=== PATIENT | female | born 1965 | race American Indian/Alaskan Native ===

== ENCOUNTER 2018-06-20 21:33 | Emergency (ER) | payer MEDICAID ==
[2018-06-20 23:00] LABS: Basophils % (Auto) 0.2 % (0.0-1.8); Eosinophils # (Auto) 0.2 K/mm3 (0.0-0.4); Eosinophils % (Auto) 2.2 % (0.0-4.3); Hematocrit 32.9 % (30.3-42.9); Hemoglobin 11.1 gm/dl (10.1-14.3); Lymphocytes # (Auto) 3.4 K/mm3 (1.2-5.4); Mean Corpuscular HGB Conc 34 % (30-34); Mean Corpuscular Hemoglobin 30 pg (28-32); Mean Corpuscular Volume 90 fl (79-97); Monocytes # (Auto) 0.6 K/mm3 (0.0-0.8); Monocytes % (Auto) 7.7 % (0.0-7.3); Platelet Count 251 K/mm3 (140-440); Red Blood Count 3.67 M/mm3 (3.65-5.03); Red Cell Distribution Width 14.9 % (13.2-15.2)
[2018-06-20 23:13] LABS: BUN/Creatinine Ratio 21; Blood Urea Nitrogen 19 mg/dL (7-17); Hemolysis Index 0
[2018-06-20 23:37] LABS: Bilirubin,Urine NEG (Negative); Blood,Urine MOD (Negative); Color,Urine Yellow (Yellow); Hyaline Casts,Urine 1 /LPF; Protein,Urine <15 mg/dL mg/dL (Negative); Urobilinogen,Urine < 2.0 mg/dL (<2.0)
[2018-06-20 23:43] LABS: Amphetamine Screen,Urine PRESUMPTIVE NEGATIVE; Benzodiazepines Screen,Urine PRESUMPTIVE NEGATIVE; Cannabinoid Screen,Urine PRESUMPTIVE NEGATIVE; Cocaine Screen,Urine PRESUMPTIVE NEGATIVE; Methadone Screen,Urine PRESUMPTIVE NEGATIVE; Opiate Screen,Urine PRESUMPTIVE NEGATIVE
[2018-06-21 06:46] VITALS: BP 157/95
--- NOTE | 2018-06-21 08:49 | Emergency Department Report ---
ED Psych HPI - General Chief Complaint: Psych Stated Complaint: ANXIETY Time Seen by Provider: 06/21/18 08:36 Source: patient Mode of arrival: Ambulatory - History of Present Illness Initial Comments: Patient is 53 years old female with history of paranoid schizophrenia. Patient presented to the ER stating that she is hearing voices and seeing them also and these voices are bothering her. Patient denied any thoughts of suicidal or homicidal ideation. MD Complaint: altered mental status - Related Data Home Medications Medication Instructions Recorded Confirmed Last Taken Artane 5 mg PO BID 06/20/18 06/20/18 Unknown Depakote 500 mg PO BID 06/20/18 06/20/18 Unknown HCTZ 25 mg PO DAILY 06/20/18 06/20/18 Unknown Lisinopril 20 mg PO DAILY 06/20/18 06/20/18 Unknown Prilosec 40 mg PO DAILY 06/20/18 06/20/18 Unknown traZODone 100 mg PO HS 06/20/18 06/20/18 Unknown Allergies Allergy/AdvReac Type Severity Reaction Status Date / Time acetaminophen [From Tylenol] Allergy Rash Verified 06/20/18 22:18 chlorpromazine Allergy Hives Verified 06/20/18 22:19 [From Thorazine] oxycodone Allergy Angioedema Verified 06/20/18 22:20 ED Review of Systems ROS: Stated complaint: ANXIETY Other details as noted in HPI Comment: All other systems reviewed and negative Constitutional: denies: chills, fever Respiratory: denies: cough, orthopnea, shortness of breath, SOB with exertion, SOB at rest, wheezing Cardiovascular: denies: chest pain, palpitations, dyspnea on exertion Gastrointestinal: denies: abdominal pain, nausea, vomiting, diarrhea, constipation, hematemesis, hematochezia Musculoskeletal: denies: back pain Neurological: denies: headache, weakness, numbness, paresthesias, confusion, abnormal gait ED Past Medical Hx - Past Medical History Hx Hypertension: Yes Hx GERD: Yes Hx Psychiatric Treatment: Yes (BIPOLAR, ANXIETY) - Surgical History Past Surgical History?: Yes Additional Surgical History: RIGHT FOOT, , hysterectomy - Social History Smoking Status: Current Every Day Smoker Substance Use Type: None - Medications Home Medications: Home Medications Medication Instructions Recorded Confirmed Last Taken Type Artane 5 mg PO BID 06/20/18 06/20/18 Unknown History Depakote 500 mg PO BID 06/20/18 06/20/18 Unknown History HCTZ 25 mg PO DAILY 06/20/18 06/20/18 Unknown History Lisinopril 20 mg PO DAILY 06/20/18 06/20/18 Unknown History Prilosec 40 mg PO DAILY 06/20/18 06/20/18 Unknown History traZODone 100 mg PO HS 06/20/18 06/20/18 Unknown History ED Physical Exam - General Limitations: No Limitations General appearance: alert, in no apparent distress - Head Head exam: Present: atraumatic, normocephalic, normal inspection - Eye Eye exam: Present: normal appearance, PERRL - ENT ENT exam: Present: normal exam, normal orophraynx, mucous membranes moist - Neck Neck exam: Present: normal inspection, full ROM. Absent: tenderness, meningismus, lymphadenopathy - Respiratory Respiratory exam: Present: normal lung sounds bilaterally. Absent: respiratory distress, wheezes, chest wall tenderness - Cardiovascular Cardiovascular Exam: Present: regular rate, normal rhythm, normal heart sounds - GI/Abdominal GI/Abdominal exam: Present: soft, normal bowel sounds. Absent: distended, tenderness, guarding, rebound, rigid, organomegaly, mass, bruit, pulsatile mass , hernia - Extremities Exam Extremities exam: Present: normal inspection, full ROM, normal capillary refill - Back Exam Back exam: Present: normal inspection, full ROM. Absent: tenderness, CVA tenderness (R), CVA tenderness (L) - Neurological Exam Neurological exam: Present: alert, oriented X3, CN II-XII intact, normal gait, reflexes normal - Skin Skin exam: Present: warm, intact, normal color ED Course Vital Signs 06/20/18 06/20/18 06/21/18 21:42 22:03 06:42 Temperature 98.0 F 98 F Pulse Rate 78 78 95 H Respiratory 18 16 18 Rate Blood Pressure 150/87 150/78 Blood Pressure 157/95 [Left] O2 Sat by Pulse 100 100 100 Oximetry ED Medical Decision Making - Lab Data Result diagrams: 06/20/18 22:40 06/20/18 22:40 Critical care attestation.: If time is entered above; I have spent that time in minutes in the direct care of this critically ill patient, excluding procedure time. ED Disposition Clinical Impression: Paranoid schizophrenia, Auditory hallucination, Visual hallucination Disposition: DC-07 LEFT AGAINST MED ADVICE Is pt being admited?: No Condition: Stable Referrals: PRIMARY CARE, [Primary Care Provider] - 3-5 Days Forms: AMA Form
== END 2018-06-21 11:57 | disposition left against medical advice (07) ==
LOC: EEVIPCON 21:33 → ED 21:33
DX: F20.0 Paranoid schizophrenia (principal); F31.9 Bipolar disorder, unspecified; F41.9 Anxiety disorder, unspecified; I10 Essential (primary) hypertension; K21.9 Gastro-esophageal reflux disease without esophagitis; F17.200 Nicotine dependence, unspecified, uncomplicated; Z90.710 Acquired absence of both cervix and uterus; Z88.6 Allergy status to analgesic agent; Z88.8 Allergy status to other drugs, medicaments and biological substances
CPT/HCPCS: 36415; 80048; 80307; 81001; 84703; 85025; 99283; G0480; 80320

== ENCOUNTER 2018-07-06 01:41 | Emergency (ER) | payer MEDICAID, MEDICARE ==
[2018-07-06 03:41] LABS: Basophils % (Auto) 0.4 % (0.0-1.8); Eosinophils # (Auto) 0.2 K/mm3 (0.0-0.4); Eosinophils % (Auto) 2.6 % (0.0-4.3); Hemoglobin 11.2 gm/dl (10.1-14.3); Lymphocytes # (Auto) 3.6 K/mm3 (1.2-5.4); Lymphocytes % (Auto) 48.6 % (13.4-35.0); Mean Corpuscular HGB Conc 34 % (30-34); Mean Corpuscular Hemoglobin 31 pg (28-32); Mean Corpuscular Volume 90 fl (79-97); Monocytes # (Auto) 0.6 K/mm3 (0.0-0.8); Monocytes % (Auto) 8.1 % (0.0-7.3); Platelet Count 208 K/mm3 (140-440); Red Blood Count 3.66 M/mm3 (3.65-5.03); Red Cell Distribution Width 14.4 % (13.2-15.2)
[2018-07-06 03:55] LABS: BUN/Creatinine Ratio 21; Blood Urea Nitrogen 19 mg/dL (7-17); Hemolysis Index 1
[2018-07-06 05:43] LABS: Bilirubin,Urine NEG (Negative); Blood,Urine SM (Negative); Color,Urine Yellow (Yellow); Mucus,Urine FEW /HPF; Protein,Urine <15 mg/dL mg/dL (Negative)
[2018-07-06 05:51] LABS: Amphetamine Screen,Urine PRESUMPTIVE NEGATIVE; Benzodiazepines Screen,Urine PRESUMPTIVE NEGATIVE; Cannabinoid Screen,Urine PRESUMPTIVE NEGATIVE; Cocaine Screen,Urine PRESUMPTIVE NEGATIVE; Methadone Screen,Urine PRESUMPTIVE NEGATIVE; Opiate Screen,Urine PRESUMPTIVE NEGATIVE
[2018-07-06 08:00] VITALS: BP 123/88
== END 2018-07-06 11:20 | disposition left against medical advice (07) ==
LOC: ED 01:41
DX: F99 Mental disorder, not otherwise specified (principal); Z53.21 Procedure and treatment not carried out due to patient leaving prior to being seen by health care provider
CPT/HCPCS: 36415; 80048; 80307; 81001; 85025; G0480; 80320

== ENCOUNTER 2018-09-21 18:12 | Emergency (ER) | payer MEDICARE ==
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
[2018-09-21 19:00] LABS: Hematocrit 30.9 % (30.3-42.9); Hemoglobin 10.1 gm/dl (10.1-14.3); Mean Corpuscular HGB Conc 33 % (30-34); Mean Corpuscular Hemoglobin 29 pg (28-32); Mean Corpuscular Volume 89 fl (79-97); Platelet Count 306 K/mm3 (140-440); Red Blood Count 3.49 M/mm3 (3.65-5.03); Red Cell Distribution Width 15.3 % (13.2-15.2)
[2018-09-21 19:20] LABS: BUN/Creatinine Ratio 20; Blood Urea Nitrogen 16 mg/dL (7-17); Calcium 9.2 mg/dL (8.4-10.2); Hemolysis Index 5
[2018-09-21 19:51] LABS: Amphetamine Screen,Urine PRESUMPTIVE NEGATIVE; Benzodiazepines Screen,Urine PRESUMPTIVE NEGATIVE; Cannabinoid Screen,Urine PRESUMPTIVE NEGATIVE; Cocaine Screen,Urine PRESUMPTIVE NEGATIVE; Methadone Screen,Urine PRESUMPTIVE NEGATIVE; Opiate Screen,Urine PRESUMPTIVE NEGATIVE
[2018-09-21 20:00] LABS: Bilirubin,Urine NEG (Negative); Blood,Urine MOD (Negative); Calcium Oxalate Crystals,Urine 1+; Color,Urine Yellow (Yellow); Hyaline Casts,Urine 1 /LPF; Mucus,Urine 3+ /HPF
[2018-09-21] MEDS: HALDOL IM PRN (20:07)
[2018-09-21] MEDS ORDERED: NON-FORMULARY (Lisinopril 10 MG) PO SCH (20:15)
[2018-09-21] MEDS ORDERED: K-DUR PO ONE ×2 (20:15→20:46)
[2018-09-21] MEDS: ZESTRIL PO SCH (20:56)
[2018-09-21] MEDS: PROTONIX PO SCH (21:54)
[2018-09-21] MEDS: PROLIXIN HCL PO SCH (21:56)
[2018-09-21] MEDS: DESYREL PO SCH (21:56)
[2018-09-21] MEDS ORDERED: NON-FORMULARY (Trazodone 50 MG) PO SCH (22:00)
[2018-09-21] MEDS ORDERED: DEPAKOTE 500 MG PO SCH (22:00)
[2018-09-21] MEDS ORDERED: FLUPHENAZINE 5 MG PO SCH (22:00)
[2018-09-22] MEDS: HALDOL IM PRN ×2 (05:24→17:11)
[2018-09-22] MEDS: ATIVAN IM PRN ×2 (05:24→17:11)
[2018-09-22 10:26] VITALS: BP 103/52
[2018-09-22] MEDS: ZESTRIL PO SCH (11:00)
[2018-09-22] MEDS: PROTONIX PO SCH (13:09)
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
[2018-09-22] MEDS: PROLIXIN HCL PO SCH (22:27)
[2018-09-22] MEDS: DESYREL PO SCH (22:27)
== END 2018-09-22 23:45 ==
LOC: ED 18:12 → EEVIPCON 18:12 → ED 09-22 23:45
DX: F23 Brief psychotic disorder (principal); F31.9 Bipolar disorder, unspecified; F41.9 Anxiety disorder, unspecified; K21.9 Gastro-esophageal reflux disease without esophagitis; I10 Essential (primary) hypertension; F17.200 Nicotine dependence, unspecified, uncomplicated; Z90.710 Acquired absence of both cervix and uterus; Z88.5 Allergy status to narcotic agent
CPT/HCPCS: 36415; 80048; 80164; 80307; 81001; 82550; 83735; 85027; 96372; 99285; G0480; J1630; J2060; 80320

== ENCOUNTER 2018-10-10 11:22 | Emergency (ER) | payer MEDICARE ==
[2018-10-10 11:32] VITALS: BP 127/83
--- NOTE | 2018-10-10 11:48 | Emergency Department Report ---
- General Chief Complaint: Upper Respiratory Infection Stated Complaint: FLU LIKE SX Time Seen by Provider: 10/10/18 11:42 Source: patient Mode of arrival: Ambulatory Limitations: No Limitations - History of Present Illness MD Complaint: fever, cough, nasal congestion Severity: moderate Context: sick contacts - Related Data Home Medications Medication Instructions Recorded Confirmed Last Taken Artane 5 mg PO BID 06/20/18 09/21/18 Unknown Lisinopril 10 mg PO DAILY 06/20/18 09/21/18 Unknown traZODone 50 mg PO HS 06/20/18 09/21/18 Unknown Prolixin 5 mg PO QHS 09/21/18 09/21/18 Unknown Previous Rx's Medication Instructions Recorded Last Taken Type Depakote 500 mg PO BID #60 08/22/18 Unknown Rx Allergies Allergy/AdvReac Type Severity Reaction Status Date / Time acetaminophen [From Tylenol] Allergy Rash Verified 06/20/18 22:18 chlorpromazine Allergy Hives Verified 06/20/18 22:19 [From Thorazine] haloperidol [From Haldol] Allergy Diarrhea Verified 10/10/18 11:29 oxycodone Allergy Angioedema Verified 06/20/18 22:20 ED Review of Systems ROS: Stated complaint: FLU LIKE SX Other details as noted in HPI Comment: All other systems reviewed and negative Constitutional: chills, fever Respiratory: cough. denies: orthopnea, shortness of breath, SOB with exertion, SOB at rest Cardiovascular: denies: chest pain, palpitations, dyspnea on exertion Gastrointestinal: denies: abdominal pain, nausea, vomiting, diarrhea, constipation, hematemesis, melena Neurological: denies: headache, weakness ED Past Medical Hx - Past Medical History Previous Medical History?: Yes Hx Hypertension: Yes Hx GERD: Yes Hx Psychiatric Treatment: Yes (BIPOLAR, ANXIETY) - Surgical History Past Surgical History?: Yes Additional Surgical History: RIGHT FOOT surgery,. . hysterectomy. tubal ligation. right wrist surgery - Social History Smoking Status: Current Every Day Smoker Substance Use Type: None - Medications Home Medications: Home Medications Medication Instructions Recorded Confirmed Last Taken Type Artane 5 mg PO BID 06/20/18 09/21/18 Unknown History Lisinopril 10 mg PO DAILY 06/20/18 09/21/18 Unknown History traZODone 50 mg PO HS 06/20/18 09/21/18 Unknown History Depakote 500 mg PO BID #60 08/22/18 09/21/18 Unknown Rx Prolixin 5 mg PO QHS 09/21/18 09/21/18 Unknown History ED Physical Exam - General Limitations: No Limitations General appearance: alert, in no apparent distress - Head Head exam: Present: atraumatic, normocephalic, normal inspection - Eye Eye exam: Present: normal appearance - ENT ENT exam: Present: normal exam, normal orophraynx, mucous membranes moist - Neck Neck exam: Present: normal inspection, full ROM. Absent: tenderness, meningismus, lymphadenopathy, thyromegaly - Respiratory Respiratory exam: Present: normal lung sounds bilaterally, chest wall tend erness. Absent: respiratory distress, wheezes, rales, rhonchi, stridor, accessory muscle use, decreased breath sounds, prolonged expiratory - Cardiovascular Cardiovascular Exam: Present: regular rate, normal rhythm, normal heart sounds - GI/Abdominal GI/Abdominal exam: Present: soft, normal bowel sounds. Absent: distended, tenderness, guarding, rebound, rigid, organomegaly, mass, bruit, pulsatile mass, hernia - Extremities Exam Extremities exam: Present: normal inspection, full ROM, normal capillary refill. Absent: pedal edema, calf tenderness - Back Exam Back exam: Present: normal inspection, full ROM. Absent: CVA tenderness (R), C VA tenderness (L) - Neurological Exam Neurological exam: Present: alert, oriented X3, CN II-XII intact, normal gait, reflexes normal - Skin Skin exam: Present: warm, intact, normal color ED Course Vital Signs 10/10/18 11:29 Temperature 98.2 F Pulse Rate 83 Respiratory 18 Rate Blood Pressure 127/83 O2 Sat by Pulse 98 Oximetry ED Medical Decision Making - Radiology Data Radiology results: image reviewed interpreted by me: Chest x-ray is unremarkable Critical care attestation.: If time is entered above; I have spent that time in minutes in the direct care of this critically ill patient, excluding procedure time. ED Disposition Clinical Impression: Acute bronchitis Disposition: DC-01 TO HOME OR SELFCARE Is pt being admited?: No Condition: Stable Instructions: Acute Bronchitis (ED) Referrals: PRIMARY CARE, [Primary Care Provider] - 3-5 Days
--- NOTE | 2018-10-10 12:49 | XRay Report ---
FINAL REPORT EXAM: XR CHEST ROUTINE 2V HISTORY: cough TECHNIQUE: Frontal and lateral chest radiographs. PRIORS: None. FINDINGS: The cardiomediastinal silhouette is normal. No focal consolidation. No pleural effusion. No pneumothorax. No acute osseous abnormality. IMPRESSION: No acute cardiopulmonary process.
== END 2018-10-10 12:34 | disposition home or self-care (01) ==
LOC: ED 11:22
DX: J20.9 Acute bronchitis, unspecified (principal); I10 Essential (primary) hypertension; K21.9 Gastro-esophageal reflux disease without esophagitis; F31.9 Bipolar disorder, unspecified; F41.9 Anxiety disorder, unspecified; F17.200 Nicotine dependence, unspecified, uncomplicated; Z88.6 Allergy status to analgesic agent; Z88.8 Allergy status to other drugs, medicaments and biological substances
CPT/HCPCS: 71046

== ENCOUNTER 2018-10-17 06:05 | Emergency (ER) | payer MEDICARE ==
[2018-10-17] MEDS ORDERED: ATIVAN IM ONE ×2 (08:06→19:04)
[2018-10-17] MEDS ORDERED: GEODON IM ONE (08:06)
[2018-10-17 08:31] LABS: Basophils % (Auto) 0.4 % (0.0-1.8); Eosinophils # (Auto) 0.2 K/mm3 (0.0-0.4); Eosinophils % (Auto) 2.3 % (0.0-4.3); Hematocrit 34.7 % (30.3-42.9); Hemoglobin 11.4 gm/dl (10.1-14.3); Lymphocytes # (Auto) 3.5 K/mm3 (1.2-5.4); Lymphocytes % (Auto) 45.6 % (13.4-35.0); Mean Corpuscular HGB Conc 33 % (30-34); Mean Corpuscular Volume 88 fl (79-97); Monocytes # (Auto) 0.8 K/mm3 (0.0-0.8); Monocytes % (Auto) 10.1 % (0.0-7.3); Platelet Count 318 K/mm3 (140-440); Red Blood Count 3.94 M/mm3 (3.65-5.03); Red Cell Distribution Width 15.3 % (13.2-15.2)
[2018-10-17 08:55] LABS: BUN/Creatinine Ratio 25; Blood Urea Nitrogen 20 mg/dL (7-17); Calcium 9.6 mg/dL (8.4-10.2); Hemolysis Index 9
[2018-10-17 08:56] LABS: Creatine Kinase MB 5.8 ng/mL (0.0-4.0)
[2018-10-17 08:57] LABS: Alanine Aminotransferase 16 units/L (7-56); Albumin 4.1 g/dL (3.9-5)
[2018-10-17 09:00] LABS: Bilirubin,Direct < 0.2 mg/dL (0-0.2)
[2018-10-17] MEDS ORDERED: ALUM-MAG HYDROX-SIMETH 200-200-20MG/5ML PO PRN (11:03)
[2018-10-17] MEDS ORDERED: MILK OF MAGNESIA PO PRN (11:03)
--- NOTE | 2018-10-17 11:03 | Emergency Department Report ---
ED General Adult HPI - General Chief complaint: Pain General Stated complaint: BODY PAIN Time Seen by Provider: 10/17/18 07:45 Source: patient, EMS Mode of arrival: Wheelchair Limitations: No Limitations - History of Present Illness Initial comments: 53-year-old female with history of bipolar disorder/schizophrenia arrives at this facility high per verbal with loose associations and agitated. She is stating that she hurts all over. She is able to give very limited information. -: unknown - Related Data Home Medications Medication Instructions Recorded Confirmed Last Taken Artane 5 mg PO BID 06/20/18 09/21/18 Unknown Lisinopril 10 mg PO DAILY 06/20/18 09/21/18 Unknown traZODone 50 mg PO HS 06/20/18 09/21/18 Unknown Prolixin 5 mg PO QHS 09/21/18 09/21/18 Unknown Previous Rx's Medication Instructions Recorded Last Taken Type Depakote 500 mg PO BID #60 08/22/18 Unknown Rx Amoxicillin [Amoxicillin TAB] 875 mg PO BID #14 tablet 10/10/18 Unknown Rx Naproxen [Naprosyn] 500 mg PO BID #14 tablet 10/10/18 Unknown Rx Ondansetron [Zofran Odt] 4 mg PO Q8HR PRN #14 tab.rapdis 10/10/18 Unknown Rx Allergies Allergy/AdvReac Type Severity Reaction Status Date / Time acetaminophen [From Tylenol] Allergy Rash Verified 06/20/18 22:18 chlorpromazine Allergy Hives Verified 06/20/18 22:19 [From Thorazine] haloperidol [From Haldol] Allergy Diarrhea Verified 10/10/18 11:29 oxycodone Allergy Angioedema Verified 06/20/18 22:20 ED Review of Systems ROS: Stated complaint: BODY PAIN Other details as noted in HPI Comment: Unobtainable due to pts medical conditions ED Past Medical Hx - Past Medical History Previous Medical History?: Yes Hx Hypertension: Yes Hx GERD: Yes Hx Psychiatric Treatment: Yes (BIPOLAR, ANXIETY) - Surgical History Past Surgical History?: Yes Additional Surgical History: RIGHT FOOT surgery,. . hysterectomy. tubal ligation. right wrist surgery - Social History Smoking Status: Unknown if ever smoked - Medications Home Medications: Home Medications Medication Instructions Recorded Confirmed Last Taken Type Artane 5 mg PO BID 06/20/18 09/21/18 Unknown History Lisinopril 10 mg PO DAILY 06/20/18 09/21/18 Unknown History traZODone 50 mg PO HS 06/20/18 09/21/18 Unknown History Depakote 500 mg PO BID #60 08/22/18 09/21/18 Unknown Rx Prolixin 5 mg PO QHS 09/21/18 09/21/18 Unknown History Amoxicillin [Amoxicillin TAB] 875 mg PO BID #14 tablet 10/10/18 Unknown Rx Naproxen [Naprosyn] 500 mg PO BID #14 tablet 10/10/18 Unknown Rx Ondansetron [Zofran Odt] 4 mg PO Q8HR PRN #14 tab.rapdis 10/10/18 Unknown Rx ED Physical Exam - General Limitations: Other (I catch her disorder) General appearance: alert, other (somewhat agitated) - Head Head exam: Present: atraumatic, normocephalic - Eye Eye exam: Present: normal appearance, PERRL, EOMI. Absent: scleral icterus - ENT ENT exam: Present: mucous membranes moist - Neck Neck exam: Present: normal inspection. Absent: tenderness, meningismus - Respiratory Respiratory exam: Present: normal lung sounds bilaterally. Absent: respiratory distress - Cardiovascular Cardiovascular Exam: Present: regular rate, normal rhythm. Absent: systolic murmur, diastolic murmur, rubs, gallop - GI/Abdominal GI/Abdominal exam: Present: soft, normal bowel sounds. Absent: distended, tenderness, guarding, rebound - Extremities Exam Extremities exam: Present: normal inspection - Back Exam Back exam: Present: normal inspection - Neurological Exam Neurological exam: Present: alert, altered (very loose associations), CN II-XII intact. Absent: motor sensory deficit - Psychiatric Psychiatric exam: Present: agitated, anxious - Skin Skin exam: Present: warm, dry, intact, normal color. Absent: rash ED Course Vital Signs 10/17/18 06:21 Temperature 98.4 F Pulse Rate 92 H Respiratory 20 Rate Blood Pressure 146/90 O2 Sat by Pulse 100 Oximetry - Reevaluation(s) Reevaluation #1: Patient was given Geodon and Ativan. A 1013 was implemented and signed. Mental health consultation. The patient is medically clear for psychiatric placement. 10/17/18 11:01 ED Medical Decision Making - Lab Data Result diagrams: 10/17/18 08:13 10/17/18 08:13 Critical care attestation.: If time is entered above; I have spent that time in minutes in the direct care of this critically ill patient, excluding procedure time. ED Disposition Clinical Impression: Acute psychosis Bipolar disorder Qualifiers: Active/Remission status: currently active Current bipolar episode type: manic Current episode severity: severe Psychotic features: with psychotic features Qualified Code(s): F31.2 - Bipolar disorder, current episode manic severe with psychotic features Disposition: DC/TX-65 PSY HOSP/PSY UNIT Is pt being admited?: No Does the pt Need Aspirin: No Condition: Stable Referrals: BENEDICT BAEZ [Primary Care Provider] - 3-5 Days Time of Disposition: 11:03
[2018-10-17] MEDS: GEODON PO SCH ×2 (12:22→22:58)
[2018-10-17] MEDS: GEODON IM PRN (13:44)
[2018-10-17 14:26] LABS: Bacteria,Urine 1+ /HPF (Negative); Bilirubin,Urine NEG (Negative); Blood,Urine SM (Negative); Color,Urine Yellow (Yellow); Mucus,Urine FEW /HPF; Protein,Urine <15 mg/dL mg/dL (Negative); Urobilinogen,Urine < 2.0 mg/dL (<2.0)
[2018-10-17 14:38] LABS: Amphetamine Screen,Urine PRESUMPTIVE NEGATIVE; Benzodiazepines Screen,Urine PRESUMPTIVE NEGATIVE; Cannabinoid Screen,Urine PRESUMPTIVE NEGATIVE; Cocaine Screen,Urine PRESUMPTIVE NEGATIVE; Methadone Screen,Urine PRESUMPTIVE NEGATIVE; Opiate Screen,Urine PRESUMPTIVE NEGATIVE
[2018-10-17] MEDS ORDERED: BENADRYL ONE (18:59)
[2018-10-17] MEDS ORDERED: ATIVAN ONE (19:00)
[2018-10-17] MEDS ORDERED: BENADRYL IM ONE (19:01)
[2018-10-18] MEDS: GEODON PO SCH ×2 (09:51→22:26)
--- NOTE | 2018-10-18 13:40 | Consultation ---
History of Present Illness - Reason for Consult Consult date: 10/18/18 Reason for consult: Mental Health Evaluation Requesting physician: DOMINICK PATRICIO - Chief Complaint Chief complaint: "I can here for pain" - History of Present Psychiatric Illness 53 y.o. AA female who presented to the ER for "pain." Today the patient is irritable with loose associations during the assessment. Her answers to quest ions were not logical. She is adamant that she has generalized pain. She could not state the location of her pain when asked, she stated,, "You know better to me about my pain." Overall, the patient isn't a good historian at this time. Medications and Allergies Allergies Allergy/AdvReac Type Severity Reaction Status Date / Time acetaminophen [From Tylenol] Allergy Rash Verified 06/20/18 22:18 chlorpromazine Allergy Hives Verified 06/20/18 22:19 [From Thorazine] haloperidol [From Haldol] Allergy Diarrhea Verified 10/10/18 11:29 oxycodone Allergy Angioedema Verified 06/20/18 22:20 Home Medications Medication Instructions Recorded Confirmed Last Taken Type Artane 5 mg PO BID 06/20/18 10/18/18 Unknown History Lisinopril 10 mg PO DAILY 06/20/18 10/18/18 Unknown History traZODone 50 mg PO HS 06/20/18 10/18/18 Unknown History Depakote 500 mg PO BID #60 08/22/18 10/18/18 Unknown Rx Prolixin 5 mg PO QHS 09/21/18 10/18/18 Unknown History Naproxen [Naprosyn] 500 mg PO BID #14 tablet 10/10/18 10/18/18 Unknown Rx Ondansetron [Zofran Odt] 4 mg PO Q8HR PRN #14 tab.rapdis 10/10/18 10/18/18 Unknown Rx Active Meds: Active Medications Al Hydrox/Mg Hydrox/Simethicone (Alum-Mag Hydrox-Simeth [phone]/5ml) 30 ml PO Q4HR PRN PRN Reason: Indigestion Magnesium Hydroxide (Milk Of Magnesia) 30 ml PO Q12HR PRN PRN Reason: Constipation Ziprasidone (Geodon) 40 mg PO BID KATHY Last Admin: 10/18/18 09:51 Dose: 40 mg Documented by: Ziprasidone (Geodon) 10 mg IM Q12H PRN PRN Reason: Agitation Last Admin: 10/17/18 13:44 Dose: 10 mg Documented by: Past psychiatric history - Past Medical History Past Medical History: hypertension Past Surgical History: No surgical history - past Psychiatric treatment and history psychiatric treatment history: The patient denies psy hx and a fam psy hx. - Social History Social history: other (Unable to obtain) Mental Status Exam - Vital signs Last Vital Signs Temp 98.2 F 10/18/18 07:45 Pulse 85 10/18/18 07:41 Resp 16 10/18/18 03:19 BP 138/89 10/18/18 07:41 Pulse Ox 100 10/18/18 07:41 - Exam Narrative exam: MSE: Appearance: in a hospital gown Behavior: regular eye contact Speech: regular rate and tone Mood: irritable Affect: congruent to mood Thought Process: tangential, loose associations Thought Content: denies SI/HI's and AVH's Motor Activity: sitting up in bed Cognition: A/O x 3 Insight: poor Judgment: poor Results Result Diagrams: 10/17/18 08:13 10/17/18 08:13 All other labs normal. Assessment and Plan Assessment and plan: Impression: Unspecified Psychosis. Today the patient is irritable during the assessment. UDs is negative. DDx: Bipolar Do with psychosis, Schizophrenia Recommendation/Plan: Continue 1013 and Geodon 40 mg PO BID for psychosis. Attempted to discuss possible metabolic side effects of Geodon with the patient. Dispo: The patient was referred to inpatient psy services. Will staff with Dr. Scout Chapman.
[2018-10-18 15:46] LABS: Alanine Aminotransferase 15 units/L (7-56)
[2018-10-18 17:19] VITALS: BP 119/86
[2018-10-18] MEDS: GEODON IM PRN (22:25)
== END 2018-10-19 07:06 ==
LOC: ED 06:05 → EEVIPCON 06:05 → ED 10-19 07:06
DX: F23 Brief psychotic disorder (principal); F31.2 Bipolar disorder, current episode manic severe with psychotic features; I10 Essential (primary) hypertension; K21.9 Gastro-esophageal reflux disease without esophagitis; Z98.51 Tubal ligation status; Z90.710 Acquired absence of both cervix and uterus; Z88.4 Allergy status to anesthetic agent; Z88.6 Allergy status to analgesic agent
CPT/HCPCS: 36415; 80048; 80076; 80164; 80307; 81001; 82150; 82550; 82553; 83690; 84075; 84450; 84460; 85025; 96372; 99285; G0480; J1200; J2060; J3486; 80320

== ENCOUNTER 2018-11-03 00:04 | Emergency (ER) | payer MEDICARE ==
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
[2018-11-03] MEDS ORDERED: WATER FOR INJ (PF) ONE ×2 (01:07→10:09)
[2018-11-03] MEDS ORDERED: GEODON IM ONE ×2 (01:24→08:53)
[2018-11-03 05:01] LABS: Basophils % (Auto) 0.2 % (0.0-1.8); Eosinophils # (Auto) 0.2 K/mm3 (0.0-0.4); Eosinophils % (Auto) 3.1 % (0.0-4.3); Hematocrit 30.9 % (30.3-42.9); Hemoglobin 10.2 gm/dl (10.1-14.3); Mean Corpuscular HGB Conc 33 % (30-34); Mean Corpuscular Volume 88 fl (79-97); Monocytes # (Auto) 0.5 K/mm3 (0.0-0.8); Monocytes % (Auto) 8.9 % (0.0-7.3); Platelet Count 227 K/mm3 (140-440); Red Blood Count 3.51 M/mm3 (3.65-5.03); Red Cell Distribution Width 15.5 % (13.2-15.2)
[2018-11-03 05:19] LABS: BUN/Creatinine Ratio 17; Blood Urea Nitrogen 12 mg/dL (7-17); Calcium 9.3 mg/dL (8.4-10.2); Hemolysis Index 16
[2018-11-03 07:57] VITALS: BP 143/87
[2018-11-03 10:35] LABS: Bilirubin,Urine NEG (Negative); Blood,Urine SM (Negative); Color,Urine Yellow (Yellow); Mucus,Urine FEW /HPF; Protein,Urine <15 mg/dL mg/dL (Negative)
[2018-11-03 10:47] LABS: Amphetamine Screen,Urine PRESUMPTIVE NEGATIVE; Benzodiazepines Screen,Urine PRESUMPTIVE NEGATIVE; Cannabinoid Screen,Urine PRESUMPTIVE NEGATIVE; Cocaine Screen,Urine PRESUMPTIVE NEGATIVE; Methadone Screen,Urine PRESUMPTIVE NEGATIVE; Opiate Screen,Urine PRESUMPTIVE NEGATIVE
[2018-11-03] MEDS ORDERED: ATIVAN IM ONE (11:45)
[2018-11-03] MEDS ORDERED: ATIVAN ONE (11:47)
[2018-11-03] MEDS ORDERED: VISTARIL PO ONE (12:55)
== END 2018-11-03 12:45 ==
LOC: EEVIPCON 00:04 → ED 00:04
DX: F20.9 Schizophrenia, unspecified (principal); F23 Brief psychotic disorder; I10 Essential (primary) hypertension; K21.9 Gastro-esophageal reflux disease without esophagitis; F31.9 Bipolar disorder, unspecified; Z98.51 Tubal ligation status; Z90.710 Acquired absence of both cervix and uterus; Z88.6 Allergy status to analgesic agent; Z88.4 Allergy status to anesthetic agent; Z88.8 Allergy status to other drugs, medicaments and biological substances
CPT/HCPCS: 36415; 80048; 80307; 81001; 84703; 85025; 96372; 99285; G0480; J2060; J3486; 80320